=== PATIENT | male | born 1965 | race Caucasian/White ===

== ENCOUNTER 2024-05-16 16:01 | Emergency (ER) | payer MEDICARE, SELFPAY ==
[2024-05-16 16:03] VITALS: BMI 36.1
[2024-05-16 16:56] VITALS: BP 135/82; PULSE 80; RESP 20; TEMP 37.2; O2SAT 95
--- NOTE | 2024-05-16 17:10 | XR_ITS ---
Examination: PA lateral chest 2 views TECHNIQUE: Upright PA and lateral chest 2 views Standing time: May 16, 2024 1727 hours INDICATIONS: Coughing and shortness of breath beginning 2 days ago. FINDINGS: Mild prominence of ventricle Cardiac leads satisfactory position Minor scarring in the left lower lung zone and right lower lung zone No lobar pneumonia or pulmonary edema IMPRESSION: No lobar pneumonia or pulmonary edema
--- NOTE | 2024-05-16 17:18 | PD.EDURI ---
Upper Respiratory Inf. RME/HPI General Chief Complaint: Flu Like Symptoms Stated Complaint: CHILLS, BONE ACHES, MUSCLE WEAKNESS Time Seen by Provider: 05/16/24 16:49 Arrival date/time: 05/16/24 16:01 58-year-old male reports with complaints of bodyaches muscle weakness chills fever cough and congestion for several days. Patient denies chest pain abdominal pain nausea vomiting or shortness of breath. He states that he has been taking medications with no improvement of symptoms Limitations: no limitations Related Data Previous Rx's ?Medication ?Instructions ?Recorded omeprazole 20 mg capsule,delayed 20 mg PO QDAY #30 caps 10/07/21 release Allergies Allergy/AdvReac Type Severity Reaction Status Date / Time Penicillins Allergy Verified 05/16/24 16:02 Review of Systems Constitutional Constitutional: Denies chills and Denies fever(s) ENT Ears, Nose, Mouth, and Throat: Denies tongue swelling and Denies vertigo Cardiovascular Cardiovascular: Denies chest pain, Denies dyspnea and Denies syncope Respiratory Respiratory: Reports cough and Denies dyspnea Gastrointestinal Gastrointestinal: Denies nausea and Denies vomiting Musculoskeletal Musculoskeletal: Denies back pain and Reports myalgias Integumentary/Breasts Skin/Breast: Denies erythema and Denies rash Neurologic Neurologic: Denies syncope and Denies vertigo Hematologic/Lymphatic Hematologic/Lymphatic: Denies easy bleeding and Denies easy bruising Allergic/Immunologic Allergic/Immunologic: Denies tongue swelling Past Medical History Past Medical History CARDIAC: Negative Congestive Heart Failure RESPIRATORY: Negative Chronic Obstructive Pulmonary Disease (COPD) GENITOURINARY: Negative Renal Disease ENDOCRINE: Negative Diabetes Mellitus Type 1 or Diabetes Mellitus Type 2 Social History SMOKING STATUS: Never smoker ED Exam General Limitations: Present no limitations General appearance: Present alert and in no apparent distress Head Head exam: Present atraumatic Eye Eye exam: Present normal appearance, PERRL and EOMI ENT ENT exam: Present normal exam, normal oropharynx and mucous membranes moist Neck Neck exam: Present normal inspection, full ROM and trachea midline Chest Chest inspection: Present normal inspection and symmetric chest wall rise Respiratory Respiratory exam: Present normal lung sounds bilaterally Cardiovascular Cardiovascular exam: Present regular rate, normal rhythm and normal heart sounds Abdominal Exam Abdominal exam: Present soft and normal bowel sounds Extremities Exam Extremities exam: Present normal inspection and full ROM Back Exam Back exam: Present normal inspection and full ROM Neurological Exam Neurological exam: Present alert, oriented X3 and CN II-XII intact Psychiatric Psychiatric exam: Present normal affect and normal mood Skin Skin exam: Present warm, dry, intact and normal color Course Quality Measures none Orders Category Date Time Status Bedside COVID-19 Antigen Test NOW Care 05/16/24 17:09 Active Bedside Influenza A&B Antigen Test NOW Care 05/16/24 17:09 Completed XR chest 2V Stat Exams 05/16/24 17:10 Stop Req Vital Signs Vital signs: Vital Signs Temperature 98.9 F 05/16/24 16:56 Pulse Rate 80 05/16/24 16:56 Respiratory Rate 20 05/16/24 16:56 Blood Pressure 135/82 H 05/16/24 16:56 Pulse Oximetry (%) 95 05/16/24 16:56 Oxygen Delivery Method Room Air 05/16/24 16:56 Upper Respiratory Infection Patient data External records reviewed:: None Clinical information provided by:: patient Social determinants that could affect healthcare access:: none Patient has the following chronic illnesses:: None How is presenting disease/condition affected by chronic disease/condition?: no chronic disease Evaluation data The following diagnostics were reviewed and interpreted by me:: lab results Lab and/or radiology exams considered but not ordered:: none Interpretation Summary: Influenza Medications / Prescriptions Medications or Prescriptions considered but not ordered:: None Medication administrations:: None Consultations Consultation(s) initiated? (list below): No Diagnosis Upper Respiratory Differential Diagnosis: upper respiratory infection, viral infection and influenza Most likely diagnosis given after review of the tests above:: Influenza Admission Indicated Admission indicated?: not indicated Admission Request Was there a request for admission?: No Disposition Plan Disposition Plan: Discharge Discharge Attestation Discharge Attestation: The patient and all family members were given an opportunity to ask questions and understood the discharge instructions. Discharge instructions specifically effects, indications for sooner follow up or return to the emergency department, and the expected course of current diagnosis. Patient condition: Stable Discharge Plan Plan Patient Disposition: HOME (Self Care) Prescriptions/Referrals Prescriptions/Med Rec: No Action omeprazole 20 mg capsule,delayed release(DR/EC) 20 mg PO QDAY Qty: 30 0RF Problem List Clinical Impression: Influenza Patient/Caregiver Discharge Instructions Discharge Activity: activity as tolerated Education Materials: ED Influenza (Adult) Additional Instructions: Your lab test were positive for the flu take medications as directed, hydrate well, get plenty of rest and follow up with PCP if you are not better in 5 days. The cough associated with the flu virus can sometimes last for several weeks after all other symptoms have gone, take OTC cough medication as needed for your cough Print Language: Georgian Stand Alone Forms: [employer] Award Info., Patient Portal Info Letter
== END 2024-05-16 17:58 | disposition home or self-care (01) ==
PROVIDERS: Emergency Provider Emergency Medicine; PCP Physician Assistant
DX: J11.1 Influenza due to unidentified influenza virus with other respiratory manifestations (principal)
CPT/HCPCS: 71046; 87400; 87811; 99283